=== PATIENT | male | born 1995 | race Caucasian/White ===

== ENCOUNTER 2017-12-25 15:42 | Emergency (ER) | payer MEDICAID ==
[~2017-12-25] VITALS: Ht 162.6 cm; Wt 113.4 kg
[2017-12-25 17:12] LABS: Alanine Aminotransferase 218 U/L (16-61); Albumin 4.4 g/dL (3.4-5.0); Alkaline Phosphatase 124 U/L (45-117); Anion Gap 11 (5-15); Aspartate Aminotransferase 123 U/L (15-37); BUN/Creatinine Ratio 9.5; Bilirubin, Total 0.7 mg/dL (0.2-1.0); Blood Urea Nitrogen 9 mg/dL (7-18); Calcium 8.9 mg/dL (8.5-10.1); Carbon Dioxide 22 mmol/L (21-32); Chloride 104 mmol/L (98-107); GFR African American 125 mL/min; GFR Non-African American 104 mL/min; Glucose 258 mg/dL (74-106); Potassium 3.7 mmol/L (3.5-5.1); Sodium 137 mmol/L (136-145); Total Protein 8.5 g/dL (6.4-8.2)
[2017-12-25 17:16] LABS: Basophils # (auto) 0.1 uL; Basophils % (auto) 1.3 % (0.0-2.0); Eosinophils # (auto) 0.3 uL; Lymphocytes # (auto) 2.3 uL; Lymphocytes % (auto) 28.3 % (10.0-50.0); Monocytes # (auto) 0.6 uL; Neutrophils # (auto) 4.9 uL
[2017-12-25 17:18] LABS: Eosinophils % (auto) 3.9 % (0.0-7.0); Hematocrit 55.3 % (41.0-53.0); Hemoglobin 19.7 g/dL (13.5-17.5); Mean Corpuscular Hemoglobin 33.4 pg (28.0-32.0); Mean Corpuscular Hgb Conc. 35.6 g/dL (32.0-36.0); Mean Corpuscular Volume 93.9 fL (80.0-100.0); Monocytes % (auto) 7.2 % (0.0-12.0); Neutrophils % (auto) 59.3 % (37.0-80.0); Nucleated Red Blood Cells % 0.3 %; Platelet Count (auto) 170 10^3/uL (140-450); Red Blood Cells 5.89 10^6/uL (4.5-5.90); Red Cell Distribution Width 12.5 % (11.8-14.3); White Blood Cell 8.2 10^3/uL (4.4-10.8)
[2017-12-26 01:05] VITALS: BP 87/46
[2017-12-26 01:13] LABS: Urine WBC None Seen /hpf (0 - 3)
[2017-12-26 01:20] LABS: Urine Bacteria NONE SEEN /hpf (None Seen); Urine Blood Negative /uL (Negative); Urine Mucus FEW (None Seen); Urine Specific Gravity 1.038 (1.001-1.035)
== END 2017-12-26 01:29 | disposition home or self-care (01) ==
LOC: ER 15:42
DX: R07.89 Other chest pain (principal); K76.0 Fatty (change of) liver, not elsewhere classified; F17.210 Nicotine dependence, cigarettes, uncomplicated; R20.0 Anesthesia of skin
CPT/HCPCS: 36415; 71046; 76705; 80053; 81001; 83690; 84484; 85025; 93005